=== PATIENT | male | born 2000 | race Two or more races ===

== ENCOUNTER 2024-03-06 13:37 | Emergency (ER) | payer OTHER ==
[~2024-03-06] VITALS: Ht 154.9 cm; Wt 61.2 kg
[2024-03-06] MEDS ORDERED: HYDR30CR79 TP (15:12)
[2024-03-06 15:22] VITALS: BP 121/69; TEMP 97.9; O2SAT 99
== END 2024-03-06 15:22 | disposition home or self-care (01) ==
LOC: ER 14:29
DX: K64.4 Residual hemorrhoidal skin tags (principal); R05.9 Cough, unspecified; Z60.2 Problems related to living alone

== ENCOUNTER 2024-05-31 00:16 | Emergency (ER) | payer OTHER ==
[~2024-05-31] VITALS: Ht 182.9 cm; Wt 59.0 kg
[~2024-05-31 00:16] MED LIST: HYDR30CR79 TP
[2024-05-31] MEDS ORDERED: ACETAMINOPHEN ES 500 MG TABLET ONE (02:15)
[2024-05-31] MEDS: ACETAMINOPHEN ES 500 MG TABLET PO ONE (02:18)
[2024-05-31] MEDS ORDERED: CYCL5TAB PO (02:31)
[2024-05-31 02:34] VITALS: BP 120/92; TEMP 97.8; O2SAT 99
== END 2024-05-31 02:34 | disposition home or self-care (01) ==
LOC: ER 00:24
DX: R51.9 Headache, unspecified (principal); V89.2XXA Person injured in unspecified motor-vehicle accident, traffic, initial encounter; Y93.89 Activity, other specified; Y92.410 Unspecified street and highway as the place of occurrence of the external cause; Y99.8 Other external cause status